=== PATIENT | female | born 1960 | race Caucasian/White ===

== ENCOUNTER 2018-12-10 20:50 | Inpatient (IN) | payer BC, OTHER ==
[~2018-12-10] VITALS: Ht 149.9 cm; Wt 74.6 kg
[2018-12-10] MEDS ORDERED: ONDANSETRON PF 4 MG/2 ML VIAL. IV ONE (21:15)
[2018-12-10] MEDS ORDERED: MORPHINE SULFATE 4 MG/ML VIAL. IV ONE (21:15)
[2018-12-10] MEDS ORDERED: IV NORMAL SALINE 1000ML BAG 1,000 ML IV SCH (21:15)
[2018-12-10] MEDS ORDERED: ASPIRIN CHEWABLE 81 MG TABLET. PO ONE (21:15)
[2018-12-10 21:22] LABS: BASO % 1 % (0-3); EOS # 0.3 x10^3/uL (0.0-0.7); EOS % 3 % (0-3); HEMATOCRIT 38.1 % (36.0-47.0); HEMOGLOBIN 12.9 g/dL (12.0-15.5); LYMPH # 3.4 x10^3/uL (1.0-4.8); LYMPH % 42 % (24-48); MEAN CORPUSCULAR HEMOGLOBIN 30 pg (25-35); MEAN CORPUSCULAR HGB CONC 34 g/dL (31-37); MEAN CORPUSCULAR VOLUME 89 fL (79-100); MONO # 0.7 x10^3/uL (0.0-1.1); MONO % 8 % (0-9); NEUT # 3.7 x10^3uL (1.8-7.7); NEUT % 45 % (31-73); PLATELET COUNT 302 x10^3/uL (140-400); RED BLOOD COUNT 4.29 x10^6/uL (3.50-5.40); RED CELL DISTRIBUTION WIDTH 13.6 % (11.5-14.5); WHITE BLOOD COUNT 8.1 x10^3/uL (4.0-11.0)
[2018-12-10 21:39] LABS: ALBUMIN 3.9 g/dL (3.4-5.0); CALCIUM 8.9 mg/dL (8.5-10.1); CREATININE 0.7 mg/dL (0.6-1.0); GFR 86.2; MAGNESIUM 1.9 mg/dL (1.8-2.4); TOTAL BILIRUBIN 0.3 mg/dL (0.2-1.0); TOTAL PROTEIN 7.8 g/dL (6.4-8.2)
[2018-12-10 21:40] LABS: POTASSIUM 2.9 mmol/L (3.5-5.1)
[2018-12-10] MEDS ORDERED: POTASSIUM CHLORIDE 20 MEQ TABLET.ER. PO ONE (21:45)
--- NOTE | 2018-12-10 21:53 | RAD ---
PORTABLE CHEST 1V Clinical Indication: chest pain started about 1 to 2 hours ago. pain in sternum and down left arm. hypertension. Comparison: None. Findings: The cardiomediastinal silhouette is normal. Lungs are clear. There is no pneumothorax. No pleural effusion is appreciated. No acute bone abnormality. Degenerative endplate spurring of the thoracic spine. IMPRESSION: No acute cardiopulmonary process. Electronically signed by: Gwyn Dunne MD (12/10/2018 9:48 PM) [facility]
--- NOTE | 2018-12-10 22:16 | PHYS DOC ---
Past Medical History Past Medical History: Hypertension Past Surgical History: No Surgical History Alcohol Use: Occasionally Drug Use: None Adult General Chief Complaint Chief Complaint: CHEST PAIN HPI HPI Patient is a 58-year-old female who presents with complaint of substernal chest pain that started approximately 45 minutes prior to arrival radiated into her neck and left shoulder. She states that pain is like a dull pressure and she does indicate that she became nauseated with the pain. She states that at its worst the pain was an 8 out of 10 and currently is about a 6 out of 10. Patient did take 2 baby aspirin at home. She indicates that she has no cardiac history but has a strong family history of cardiac disease. Patient states that symptoms were worsened with minimal exertion. She states that there are no alleviating factors. Review of Systems Review of Systems Constitutional: Denies fever or chills [] Respiratory: Denies cough or shortness of breath [] Cardiovascular: No additional information not addressed in HPI [] GI: Denies abdominal pain. Admits to nausea without vomiting. [] Integument: Denies rash or skin lesions [] Neurologic: Denies headache, focal weakness or sensory changes [] All other systems were reviewed and found to be within normal limits, except as documented in this note. Current Medications Current Medications Current Medications Medications (Trade) Dose Ordered Sig/[facility] Start Time Stop Time Status Last Admin Dose Admin Aspirin (Children'S Aspirin) 162 mg 1X ONCE 12/10/18 21:15 12/10/18 21:16 DC 12/10/18 21:21 162 MG Morphine Sulfate (Morphine Sulfate) 2 mg 1X ONCE 12/10/18 21:15 12/10/18 21:16 DC 12/10/18 21:21 2 MG Ondansetron HCl (Zofran) 4 mg 1X ONCE 12/10/18 21:15 12/10/18 21:16 DC 12/10/18 21:21 4 MG Potassium Chloride (Klor-Con) 40 meq 1X ONCE 12/10/18 21:45 12/10/18 21:46 DC 12/10/18 21:59 40 MEQ Sodium Chloride 1,000 ml @ 1,000 mls/hr Q1H 12/10/18 21:15 12/10/18 22:14 DC 12/10/18 21:22 1,000 MLS/HR Allergies Allergies Allergies Coded Allergies Type Severity Reaction Last Updated Verified No Known Drug Allergies 12/10/18 No Physical Exam Physical Exam Constitutional: Well developed, well nourished, no acute distress, non-toxic appearance. [] HENT: Normocephalic, atraumatic, bilateral external ears normal, oropharynx moist, no oral exudates, nose normal. [] Eyes: PERRLA, EOMI, conjunctiva normal, no discharge. [] Neck: Normal range of motion, no tenderness, supple, no stridor. [] Cardiovascular: Mildly bradycardic rate with regular rhythm [] Lungs & Thorax: Bilateral breath sounds clear to auscultation [] Abdomen: Bowel sounds normal, soft, no tenderness. [] Skin: Warm, dry, no erythema, no rash. [] Extremities: No tenderness, no cyanosis, no clubbing, ROM intact, no edema. [] Neurologic: Alert and oriented X 3, no focal deficits noted. [] Current Patient Data Vital Signs Vital Signs Date Time Temp Pulse Resp B/P (MAP) Pulse Ox O2 Delivery O2 Flow Rate FiO2 12/10/18 21:10 98.3 60 18 213/94 (133) 100 Room Air 98.3 Lab Values Laboratory Tests Test 12/10/18 21:09 White Blood Count 8.1 x10^3/uL (4.0-11.0) Red Blood Count 4.29 x10^6/uL (3.50-5.40) Hemoglobin 12.9 g/dL (12.0-15.5) Hematocrit 38.1 % (36.0-47.0) Mean Corpuscular Volume 89 fL (79-100) Mean Corpuscular Hemoglobin 30 pg (25-35) Mean Corpuscular Hemoglobin Concent 34 g/dL (31-37) Red Cell Distribution Width 13.6 % (11.5-14.5) Platelet Count 302 x10^3/uL (140-400) Neutrophils (%) (Auto) 45 % (31-73) Lymphocytes (%) (Auto) 42 % (24-48) Monocytes (%) (Auto) 8 % (0-9) Eosinophils (%) (Auto) 3 % (0-3) Basophils (%) (Auto) 1 % (0-3) Neutrophils # (Auto) 3.7 x10^3uL (1.8-7.7) Lymphocytes # (Auto) 3.4 x10^3/uL (1.0-4.8) Monocytes # (Auto) 0.7 x10^3/uL (0.0-1.1) Eosinophils # (Auto) 0.3 x10^3/uL (0.0-0.7) Basophils # (Auto) 0.0 x10^3/uL (0.0-0.2) Sodium Level 139 mmol/L (136-145) Potassium Level 2.9 mmol/L (3.5-5.1) *L Chloride Level 102 mmol/L (98-107) Carbon Dioxide Level 28 mmol/L (21-32) Anion Gap 9 (6-14) Blood Urea Nitrogen 21 mg/dL (7-20) H Creatinine 0.7 mg/dL (0.6-1.0) Estimated GFR (Cockcroft-Gault) 86.2 BUN/Creatinine Ratio 30 (6-20) H Glucose Level 122 mg/dL (70-99) H Calcium Level 8.9 mg/dL (8.5-10.1) Magnesium Level 1.9 mg/dL (1.8-2.4) Total Bilirubin 0.3 mg/dL (0.2-1.0) Aspartate Amino Transferase (AST) 21 U/L (15-37) Alanine Aminotransferase (ALT) 31 U/L (14-59) Alkaline Phosphatase 69 U/L (46-116) Troponin I Quantitative < 0.017 ng/mL (0.000-0.055) QO-Son-F-Type Natriuretic Peptide 98 pg/mL (0-124) Total Protein 7.8 g/dL (6.4-8.2) Albumin 3.9 g/dL (3.4-5.0) Albumin/Globulin Ratio 1.0 (1.0-1.7) Lipase 164 U/L (73-393) Laboratory Tests 12/10/18 21:09 Laboratory Tests 12/10/18 21:09 EKG EKG [] Interpretation Time: EKG demonstrates normal sinus rhythm with rate of 53. There are no ST segment or mellitus. Radiology/Procedures Radiology/Procedures [] Impressions: PROCEDURE: PORTABLE CHEST 1V PORTABLE CHEST 1V Clinical Indication: chest pain started about 1 to 2 hours ago. pain in sternum and down left arm. hypertension. Comparison: None. Findings: The cardiomediastinal silhouette is normal. Lungs are clear. There is no pneumothorax. No pleural effusion is appreciated. No acute bone abnormality. Degenerative endplate spurring of the thoracic spine. IMPRESSION: No acute cardiopulmonary process. Electronically signed by: Gwyn Dunne MD (12/10/2018 9:48 PM) [facility] Course & Med Decision Making Course & Med Decision Making Pertinent Labs and Imaging studies reviewed. (See chart for details) [] Dragon Disclaimer Dragon Disclaimer This electronic medical record was generated, in whole or in part, using a voice recognition dictation system. Departure Departure Impression: Primary Impression: Chest pain Disposition: 09 ADMITTED INPATIENT Admitting Physician: Other (Obiozor) Condition: IMPROVED Referrals: PAIGE LOU MD (PCP) Problem Qualifiers Primary Impression: Chest pain Chest pain type: unspecified Qualified Codes: R07.9 - Chest pain, unspecified ALIZE DURAN Jr. DO Dec 10, 2018 22:16
[2018-12-10] MEDS: IV NORMAL SALINE 1000ML BAG 1,000 ML IV SCH (22:30)
[2018-12-10] MEDS ORDERED: ONDANSETRON PF 4 MG/2 ML VIAL. IV PRN (22:30)
[2018-12-10] MEDS ORDERED: MORPHINE SULFATE 4 MG/ML VIAL. IV PRN (22:30)
[2018-12-10 23:00] VITALS: BP 167/78
[2018-12-10] MEDS ORDERED: LOSA1TAB25 PO (23:18)
[2018-12-11 03:30] VITALS: BP 96/59
[2018-12-11 06:09] LABS: CALCIUM 8.5 mg/dL (8.5-10.1); CREATININE 0.7 mg/dL (0.6-1.0); GFR 86.2; POTASSIUM 4.5 mmol/L (3.5-5.1)
[2018-12-11] MEDS: IV NORMAL SALINE 1000ML BAG 1,000 ML IV SCH ×2 (06:30→14:30)
[2018-12-11 07:00] VITALS: BP 104/51
--- NOTE | 2018-12-11 07:29 | EKG ---
[facility] [address] [place] [address] Test Date: 2018-12-10 Test Time: 20:54:09 Pat Name: DAVID EDMONDS Department: Room: 200 1 Gender: F Shipping Hand: : 1960 Requested By: ALIZE DURAN Order Number: [id number] Reading MD: Niko Steel Measurements Intervals [place] Rate: 53 P: 42 WI: 176 QRS: -7 QRSD: 90 T: 17 QT: 436 QTc: 415 Interpretive Statements SINUS RHYTHM LEFTWARD AXIS Electronically Signed On 12-13-2018 9:46:05 [employer] by Niko Steel
[2018-12-11] MEDS: LOSARTAN POTASSIUM 50 MG TABLET. PO SCH (10:52)
[2018-12-11] MEDS: hydroCHLOROthiazide 12.5 MG CAPSULE PO SCH (10:52)
--- NOTE | 2018-12-11 10:53 | PDOC2 ---
CONSULT Date of Consult Date of Consult DATE: 12/11/18 TIME: 10:48 Reason for Consult Reason for Consult: Chest pain Referring Physician Referring Physician: Dr. Stewart Identification/Chief Complaint Chief Complaint Chest pain Source Source: Caregiver, Patient History of Present Illness Reason for Visit: 58-year-old female presented complaining of left-sided chest pressure 7/10 severity radiating to her neck and left shoulder and arm. She stated that she felt like something heavy was sitting on her chest. She denied any orthopnea/PND , palpitations or syncope. She is a smoker and has strong family history of premature coronary artery disease. Past Medical History Cardiovascular: HTN Past Surgical History Past Surgical History: No pertinent history Family History Family History Positive for premature coronary artery disease Social History Social History Patient admitted to smoking less than one pack of cigarettes daily and occasional intake of alcohol. She denied any drug abuse. Current Problem List Problem List Problems Medical Problems: (1) Chest pain Status: Acute Current Medications Current Medications Current Medications Aspirin (Children'S Aspirin) 162 mg 1X ONCE PO Last administered on 12/10/18at 21:21; Start 12/10/18 at 21:15; Stop 12/10/18 at 21:16; Status DC Sodium Chloride 1,000 ml @ 1,000 mls/hr Q1H IV Last administered on 12/10/18at 21:22; Start 12/10/18 at 21:15; Stop 12/10/18 at 22:14; Status DC Morphine Sulfate (Morphine Sulfate) 2 mg 1X ONCE IV Last administered on at 21:21; Start 12/10/18 at 21:15; Stop 12/10/18 at 21:16; Status DC Ondansetron HCl (Zofran) 4 mg 1X ONCE IV Last administered on 12/10/18at 21:21 ; Start 12/10/18 at 21:15; Stop 12/10/18 at 21:16; Status DC Potassium Chloride (Klor-Con) 40 meq 1X ONCE PO Last administered on at 21:59; Start 12/10/18 at 21:45; Stop 12/10/18 at 21:46; Status DC Ondansetron HCl (Zofran) 4 mg PRN Q8HRS PRN IV NAUSEA/VOMITING; Start 12/10/18 at 22:30; Stop 12/11/18 at 22:29 Morphine Sulfate (Morphine Sulfate) 2 mg PRN Q2HR PRN IV PAIN; Start 12/10/18 at 22:30; Stop 12/11/18 at 22:29 Sodium Chloride 1,000 ml @ 125 mls/hr Q8H IV ; Start 12/10/18 at 22:30; Stop at 22:29 Non-Formulary Medication (Losartan/ Hydrochlorothiazide (Losartan-Hctz 100-12.5 Mg Tab)) 1 tab DAILY PO ; Start 12/12/18 at 09:00; Stop 12/12/18 at 09:00; Status DC Losartan Potassium (Cozaar) 100 mg DAILY PO ; Start 12/11/18 at 11:00 Hydrochlorothiazide (Microzide) 12.5 mg DAILY PO ; Start 12/11/18 at 11:00 Active Scripts Active Reported Losartan-Hctz 100-12.5 Mg Tab (Losartan/Hydrochlorothiazide) 1 Each Tablet 1 Tab PO DAILY Allergies Allergies: Coded Allergies: No Known Drug Allergies (Unverified , 12/10/18) ROS PSYCHOLOGICAL ROS: No: Hallucinations Eyes: No Loss of vision HEENT: No: Epistaxis Respiratory: No: Hemoptysis, Shortness of breath Cardiovascular: yes Chest Pain Gastrointestinal: Yes Nausea; No Vomiting, No Diarrhea Genitourinary: No Hematuria Neurological: No Seizures Skin: No Rash Physical Exam General: Alert, Oriented X3 HEENT: Atraumatic, PERRLA Lungs: Clear to auscultation Heart: Regular rate Abdomen: Soft, No tenderness Extremities: No edema Psych/Mental Status: Mood NL Vitals VITALS Vital Signs Date Time Temp Pulse Resp B/P (MAP) Pulse Ox O2 Delivery O2 Flow Rate FiO2 12/11/18 07:48 Room Air 12/11/18 07:00 98.1 65 18 104/51 (68) 98 98.1 Labs Labs Laboratory Tests Test 12/10/18 21:09 12/11/18 01:10 12/11/18 04:30 White Blood Count 8.1 x10^3/uL (4.0-11.0) Red Blood Count 4.29 x10^6/uL (3.50-5.40) Hemoglobin 12.9 g/dL (12.0-15.5) Hematocrit 38.1 % (36.0-47.0) Mean Corpuscular Volume 89 fL (79-100) Mean Corpuscular Hemoglobin 30 pg (25-35) Mean Corpuscular Hemoglobin Concent 34 g/dL (31-37) Red Cell Distribution Width 13.6 % (11.5-14.5) Platelet Count 302 x10^3/uL (140-400) Neutrophils (%) (Auto) 45 % (31-73) Lymphocytes (%) (Auto) 42 % (24-48) Monocytes (%) (Auto) 8 % (0-9) Eosinophils (%) (Auto) 3 % (0-3) Basophils (%) (Auto) 1 % (0-3) Neutrophils # (Auto) 3.7 x10^3uL (1.8-7.7) Lymphocytes # (Auto) 3.4 x10^3/uL (1.0-4.8) Monocytes # (Auto) 0.7 x10^3/uL (0.0-1.1) Eosinophils # (Auto) 0.3 x10^3/uL (0.0-0.7) Basophils # (Auto) 0.0 x10^3/uL (0.0-0.2) Sodium Level 139 mmol/L (136-145) 144 mmol/L (136-145) Potassium Level 2.9 mmol/L (3.5-5.1) 4.5 mmol/L (3.5-5.1) Chloride Level 102 mmol/L (98-107) 110 mmol/L (98-107) Carbon Dioxide Level 28 mmol/L (21-32) 27 mmol/L (21-32) Anion Gap 9 (6-14) 7 (6-14) Blood Urea Nitrogen 21 mg/dL (7-20) 19 mg/dL (7-20) Creatinine 0.7 mg/dL (0.6-1.0) 0.7 mg/dL (0.6-1.0) Estimated GFR (Cockcroft-Gault) 86.2 86.2 BUN/Creatinine Ratio 30 (6-20) Glucose Level 122 mg/dL (70-99) 84 mg/dL (70-99) Calcium Level 8.9 mg/dL (8.5-10.1) 8.5 mg/dL (8.5-10.1) Magnesium Level 1.9 mg/dL (1.8-2.4) Total Bilirubin 0.3 mg/dL (0.2-1.0) Aspartate Amino Transf (AST/SGOT) 21 U/L (15-37) Alanine Aminotransferase (ALT/SGPT) 31 U/L (14-59) Alkaline Phosphatase 69 U/L (46-116) Troponin I Quantitative < 0.017 ng/mL (0.000-0.055) < 0.017 ng/mL (0.000-0.055) < 0.017 ng/mL (0.000-0.055) BN-Oxi-W-Type Natriuretic Peptide 98 pg/mL (0-124) Total Protein 7.8 g/dL (6.4-8.2) Albumin 3.9 g/dL (3.4-5.0) Albumin/Globulin Ratio 1.0 (1.0-1.7) Lipase 164 U/L (73-393) Laboratory Tests Test 12/10/18 21:09 12/11/18 01:10 12/11/18 04:30 White Blood Count 8.1 x10^3/uL (4.0-11.0) Red Blood Count 4.29 x10^6/uL (3.50-5.40) Hemoglobin 12.9 g/dL (12.0-15.5) Hematocrit 38.1 % (36.0-47.0) Mean Corpuscular Volume 89 fL (79-100) Mean Corpuscular Hemoglobin 30 pg (25-35) Mean Corpuscular Hemoglobin Concent 34 g/dL (31-37) Red Cell Distribution Width 13.6 % (11.5-14.5) Platelet Count 302 x10^3/uL (140-400) Neutrophils (%) (Auto) 45 % (31-73) Lymphocytes (%) (Auto) 42 % (24-48) Monocytes (%) (Auto) 8 % (0-9) Eosinophils (%) (Auto) 3 % (0-3) Basophils (%) (Auto) 1 % (0-3) Neutrophils # (Auto) 3.7 x10^3uL (1.8-7.7) Lymphocytes # (Auto) 3.4 x10^3/uL (1.0-4.8) Monocytes # (Auto) 0.7 x10^3/uL (0.0-1.1) Eosinophils # (Auto) 0.3 x10^3/uL (0.0-0.7) Basophils # (Auto) 0.0 x10^3/uL (0.0-0.2) Sodium Level 139 mmol/L (136-145) 144 mmol/L (136-145) Potassium Level 2.9 mmol/L (3.5-5.1) 4.5 mmol/L (3.5-5.1) Chloride Level 102 mmol/L (98-107) 110 mmol/L (98-107) Carbon Dioxide Level 28 mmol/L (21-32) 27 mmol/L (21-32) Anion Gap 9 (6-14) 7 (6-14) Blood Urea Nitrogen 21 mg/dL (7-20) 19 mg/dL (7-20) Creatinine 0.7 mg/dL (0.6-1.0) 0.7 mg/dL (0.6-1.0) Estimated GFR (Cockcroft-Gault) 86.2 86.2 BUN/Creatinine Ratio 30 (6-20) Glucose Level 122 mg/dL (70-99) 84 mg/dL (70-99) Calcium Level 8.9 mg/dL (8.5-10.1) 8.5 mg/dL (8.5-10.1) Magnesium Level 1.9 mg/dL (1.8-2.4) Total Bilirubin 0.3 mg/dL (0.2-1.0) Aspartate Amino Transf (AST/SGOT) 21 U/L (15-37) Alanine Aminotransferase (ALT/SGPT) 31 U/L (14-59) Alkaline Phosphatase 69 U/L (46-116) Troponin I Quantitative < 0.017 ng/mL (0.000-0.055) < 0.017 ng/mL (0.000-0.055) < 0.017 ng/mL (0.000-0.055) GA-Qrr-F-Type Natriuretic Peptide 98 pg/mL (0-124) Total Protein 7.8 g/dL (6.4-8.2) Albumin 3.9 g/dL (3.4-5.0) Albumin/Globulin Ratio 1.0 (1.0-1.7) Lipase 164 U/L (73-393) Assessment/Plan Assessment/Plan 1. Chest pain with typical features concerning for unstable angina. Myocardial infarction has been ruled out. We will proceed with cardiac catheterization for definitive evaluation. Risks and benefits were explained and she is agreeable. 2. Hypertension: Controlled Thank you for your consultation. WILLOW HOYT MD Dec 11, 2018 10:53
[2018-12-11 10:58] VITALS: BP 107/62
[2018-12-11] MEDS: ASPIRIN ENTERIC COATED 325 MG TABLET.DR. PO SCH (12:30)
[2018-12-11 15:00] VITALS: BP 114/69
--- NOTE | 2018-12-11 15:31 | PDOC1 ---
History and Physical History of Present Illness History of Present Illness Per ED Patient is a 58-year-old female who presents with complaint of substernal chest pain that started approximately 45 minutes prior to arrival radiated into her neck and left shoulder. She states that pain is like a dull pressure and she does indicate that she became nauseated with the pain. She states that at its worst the pain was an 8 out of 10 and currently is about a 6 out of 10. Patient did take 2 baby aspirin at home. She indicates that she has no cardiac history but has a strong family history of cardiac disease. Patient states that symptoms were worsened with minimal exertion. She states that there are no alleviating factors. On my exam the pt isin bed in NAD. She states that she has never had CP before and this presentation is new. She thinks she got too excited watching the [employer] game last night She c/o headache but has a h/o headaches - improved with ASA She has been seen by cards. Plan for cath in the am Past Medical History Cardiovascular: HTN Past Surgical History Past Surgical History: No pertinent history Current Problem List Problem List Problems Medical Problems: (1) Chest pain Status: Acute Current Medications Current Medications Current Medications Medications (Trade) Dose Ordered Sig/Jet Start Time Stop Time Status Last Admin Dose Admin Aspirin (Children'S Aspirin) 162 mg 1X ONCE 12/10/18 21:15 12/10/18 21:16 DC 12/10/18 21:21 162 MG Aspirin (Ecotrin) 325 mg [id number] 12/11/18 12:00 12/11/18 12:30 325 MG Hydrochlorothiazide (Microzide) 12.5 mg DAILY 12/11/18 11:00 12/11/18 10:52 12.5 MG Losartan Potassium (Cozaar) 100 mg DAILY 12/11/18 11:00 12/11/18 10:52 100 MG Morphine Sulfate (Morphine Sulfate) 2 mg PRN Q2HR PRN 12/10/18 22:30 12/11/18 22:29 Non-Formulary Medication (Losartan/ Hydrochlorothiazide (Losartan-Hctz 100-12.5 Mg Tab)) 1 tab DAILY 12/12/18 09:00 12/12/18 09:00 DC Ondansetron HCl (Zofran) 4 mg PRN Q8HRS PRN 12/10/18 22:30 12/11/18 22:29 Potassium Chloride (Klor-Con) 40 meq 1X ONCE 12/10/18 21:45 12/10/18 21:46 DC 12/10/18 21:59 40 MEQ Sodium Chloride 1,000 ml @ 125 mls/hr Q8H 12/10/18 22:30 12/11/18 22:29 Allergies Allergies Allergies Coded Allergies Type Severity Reaction Last Updated Verified No Known Drug Allergies 12/10/18 No ROS Review of System CONSTITUTIONAL: No fever or chills EYES: No recent changes SKIN: No rash or itching CARDIOVASCULAR: No chest pain, syncope, palpitations, or edema RESPIRATORY: No SOB or cough GASTROINTESTINAL: No nausea, vomiting or abdominal pain NEUROLOGICAL: No headaches or weakness ENDOCRINE: No cold or heat intolerance GENITOURINARY: No urgency or frequency of urination MUSCULOSKELETAL: No back pain or joint pain LYMPHATICS: No enlarged lymph nodes PSYCHIATRIC: No anxiety or depression Physical Exam Physical Exam GEN.: No apparent distress. Alert and oriented. HEENT: Head is normocephalic, atraumatic NECK: Supple. LUNGS: Clear to auscultation. HEART: RRR, S1, S2 present. Peripheral pulses intact ABDOMEN: Soft, nontender. Positive bowel sounds. EXTREMITIES: Without any cyanosis. NEUROLOGIC: Normal speech, normal tone PSYCHIATRIC: Normal affect, normal mood. SKIN: No ulcerations Vitals Vitals Vital Signs Date Time Temp Pulse Resp B/P (MAP) Pulse Ox O2 Delivery O2 Flow Rate FiO2 12/11/18 10:58 97.8 66 18 107/62 (77) 97 Room Air 97.8 Labs Labs Laboratory Tests Test 12/10/18 21:09 12/11/18 01:10 12/11/18 04:30 White Blood Count 8.1 x10^3/uL (4.0-11.0) Red Blood Count 4.29 x10^6/uL (3.50-5.40) Hemoglobin 12.9 g/dL (12.0-15.5) Hematocrit 38.1 % (36.0-47.0) Mean Corpuscular Volume 89 fL (79-100) Mean Corpuscular Hemoglobin 30 pg (25-35) Mean Corpuscular Hemoglobin Concent 34 g/dL (31-37) Red Cell Distribution Width 13.6 % (11.5-14.5) Platelet Count 302 x10^3/uL (140-400) Neutrophils (%) (Auto) 45 % (31-73) Lymphocytes (%) (Auto) 42 % (24-48) Monocytes (%) (Auto) 8 % (0-9) Eosinophils (%) (Auto) 3 % (0-3) Basophils (%) (Auto) 1 % (0-3) Neutrophils # (Auto) 3.7 x10^3uL (1.8-7.7) Lymphocytes # (Auto) 3.4 x10^3/uL (1.0-4.8) Monocytes # (Auto) 0.7 x10^3/uL (0.0-1.1) Eosinophils # (Auto) 0.3 x10^3/uL (0.0-0.7) Basophils # (Auto) 0.0 x10^3/uL (0.0-0.2) Sodium Level 139 mmol/L (136-145) 144 mmol/L (136-145) Potassium Level 2.9 mmol/L (3.5-5.1) 4.5 mmol/L (3.5-5.1) Chloride Level 102 mmol/L (98-107) 110 mmol/L (98-107) Carbon Dioxide Level 28 mmol/L (21-32) 27 mmol/L (21-32) Anion Gap 9 (6-14) 7 (6-14) Blood Urea Nitrogen 21 mg/dL (7-20) 19 mg/dL (7-20) Creatinine 0.7 mg/dL (0.6-1.0) 0.7 mg/dL (0.6-1.0) Estimated GFR (Cockcroft-Gault) 86.2 86.2 BUN/Creatinine Ratio 30 (6-20) Glucose Level 122 mg/dL (70-99) 84 mg/dL (70-99) Calcium Level 8.9 mg/dL (8.5-10.1) 8.5 mg/dL (8.5-10.1) Magnesium Level 1.9 mg/dL (1.8-2.4) Total Bilirubin 0.3 mg/dL (0.2-1.0) Aspartate Amino Transf (AST/SGOT) 21 U/L (15-37) Alanine Aminotransferase (ALT/SGPT) 31 U/L (14-59) Alkaline Phosphatase 69 U/L (46-116) Troponin I Quantitative < 0.017 ng/mL (0.000-0.055) < 0.017 ng/mL (0.000-0.055) < 0.017 ng/mL (0.000-0.055) MQ-Jlx-V-Type Natriuretic Peptide 98 pg/mL (0-124) Total Protein 7.8 g/dL (6.4-8.2) Albumin 3.9 g/dL (3.4-5.0) Albumin/Globulin Ratio 1.0 (1.0-1.7) Lipase 164 U/L (73-393) Laboratory Tests Test 12/10/18 21:09 12/11/18 01:10 12/11/18 04:30 White Blood Count 8.1 x10^3/uL (4.0-11.0) Red Blood Count 4.29 x10^6/uL (3.50-5.40) Hemoglobin 12.9 g/dL (12.0-15.5) Hematocrit 38.1 % (36.0-47.0) Mean Corpuscular Volume 89 fL (79-100) Mean Corpuscular Hemoglobin 30 pg (25-35) Mean Corpuscular Hemoglobin Concent 34 g/dL (31-37) Red Cell Distribution Width 13.6 % (11.5-14.5) Platelet Count 302 x10^3/uL (140-400) Neutrophils (%) (Auto) 45 % (31-73) Lymphocytes (%) (Auto) 42 % (24-48) Monocytes (%) (Auto) 8 % (0-9) Eosinophils (%) (Auto) 3 % (0-3) Basophils (%) (Auto) 1 % (0-3) Neutrophils # (Auto) 3.7 x10^3uL (1.8-7.7) Lymphocytes # (Auto) 3.4 x10^3/uL (1.0-4.8) Monocytes # (Auto) 0.7 x10^3/uL (0.0-1.1) Eosinophils # (Auto) 0.3 x10^3/uL (0.0-0.7) Basophils # (Auto) 0.0 x10^3/uL (0.0-0.2) Sodium Level 139 mmol/L (136-145) 144 mmol/L (136-145) Potassium Level 2.9 mmol/L (3.5-5.1) 4.5 mmol/L (3.5-5.1) Chloride Level 102 mmol/L (98-107) 110 mmol/L (98-107) Carbon Dioxide Level 28 mmol/L (21-32) 27 mmol/L (21-32) Anion Gap 9 (6-14) 7 (6-14) Blood Urea Nitrogen 21 mg/dL (7-20) 19 mg/dL (7-20) Creatinine 0.7 mg/dL (0.6-1.0) 0.7 mg/dL (0.6-1.0) Estimated GFR (Cockcroft-Gault) 86.2 86.2 BUN/Creatinine Ratio 30 (6-20) Glucose Level 122 mg/dL (70-99) 84 mg/dL (70-99) Calcium Level 8.9 mg/dL (8.5-10.1) 8.5 mg/dL (8.5-10.1) Magnesium Level 1.9 mg/dL (1.8-2.4) Total Bilirubin 0.3 mg/dL (0.2-1.0) Aspartate Amino Transf (AST/SGOT) 21 U/L (15-37) Alanine Aminotransferase (ALT/SGPT) 31 U/L (14-59) Alkaline Phosphatase 69 U/L (46-116) Troponin I Quantitative < 0.017 ng/mL (0.000-0.055) < 0.017 ng/mL (0.000-0.055) < 0.017 ng/mL (0.000-0.055) QG-Vuo-K-Type Natriuretic Peptide 98 pg/mL (0-124) Total Protein 7.8 g/dL (6.4-8.2) Albumin 3.9 g/dL (3.4-5.0) Albumin/Globulin Ratio 1.0 (1.0-1.7) Lipase 164 U/L (73-393) VTE Prophylaxis Ordered VTE Prophylaxis Devices: No VTE Pharmacological Prophylaxi: No Assessment/Plan Assessment/Plan Plan: Kasia cards eval Cycle trops Cath in FAITH REEDER MD Dec 11, 2018 15:31
[2018-12-11 19:35] VITALS: BP 128/72
[2018-12-11 23:00] VITALS: BP 106/53
[2018-12-12] VITALS (13 sets, daily range): BP systolic 80–125; BP diastolic 53–77
[2018-12-12] MEDS: ASPIRIN ENTERIC COATED 325 MG TABLET.DR. PO SCH (08:01)
[2018-12-12] MEDS: LOSARTAN POTASSIUM 50 MG TABLET. PO SCH (08:01)
[2018-12-12] MEDS: hydroCHLOROthiazide 12.5 MG CAPSULE PO SCH (09:00)
[2018-12-12] MEDS ORDERED: NON FORMULARY ITEM (Losartan/Hydrochlorothiazide (Losartan-Hctz 100-12.5 Mg Tab) 1 TAB) PO SCH (09:00)
[2018-12-12] MEDS ORDERED: LIDOCAINE 1% PF 2 ML VIAL. ONE ×2 (09:31→09:55)
[2018-12-12] MEDS ORDERED: IODIXANOL 320 MG/ML 100 ML VIAL. ONE (09:31)
--- NOTE | 2018-12-12 09:41 | CARD ---
MR#: [id number] Date of Study: 12/12/2018 Ordering Physician: WILLOW HOYT, Referring Physician: FAITH REEDRE Tech: Niya Whitt [facility] APPROVED REPORT EXAM: Two-dimensional and M-mode echocardiogram with Doppler and color Doppler. Other Information Quality : Good INDICATION Chest Pain 2D DIMENSIONS RVDd2.1 (2.9-3.5cm)Left Atrium(2D)3.0 (1.6-4.0cm) IVSd0.8 (0.7-1.1cm)Aortic Root(2D)2.8 (2.0-3.7cm) LVDd4.0 (3.9-5.9cm)LVOT Diameter2.0 (1.8-2.4cm) PWd0.8 (0.7-1.1cm)LVDs2.3 (2.5-4.0cm) FS (%) 30.0 %SV53.0 ml LVEF(%)60.0 (>50%) Aortic Valve AoV Peak Tramaine.87.1cm/sAoV VTI17.5cm AO Peak GR.3.0mmHgLVOT Peak Tramaine.91.6cm/s AO Mean GR.2mmHgAVA (VMAX)3.24cm2 JULIEN (VTI)3.30cm2 Mitral Valve MV E Olweilyz45.7cm/sMV DECEL [id number] MV A Lofardmm83.8cm/sE/A Ratio1.2 Tricuspid Valve TR P. Iarbyzie902as/sRAP HHGUWDIW5hqTd TR Peak Gr.49anUcEMYS83ogOs Pulmonary Vein S1 Kwulvbvh43.6cm/sD2 Fvhybpkt39.5cm/s LEFT VENTRICLE The left ventricle is normal size. There is normal left ventricular wall thickness. The left ventricu lar systolic function is normal. The Ejection Fraction is 55-60%. There is normal LV segmental wall m otion. RIGHT VENTRICLE The right ventricle is normal size. The right ventricular systolic function is normal. ATRIA The left atrium size is normal. The right atrium size is normal. The interatrial septum is intact wit h no evidence for an atrial septal defect or patent foramen ovale as noted on 2-D or Doppler imaging. AORTIC VALVE The aortic valve is calcified but opens well. Doppler and Color Flow revealed no significant aortic r egurgitation. There is no significant aortic valvular stenosis. MITRAL VALVE The mitral valve is calcified but opens well. There is no evidence of mitral valve prolapse. There is no mitral valve stenosis. Doppler and Color-flow revealed trace to mild mitral regurgitation. TRICUSPID VALVE The tricuspid valve is normal in structure and function. Doppler and Color Flow revealed mild tricusp id regurgitation. The PA pressure was estimated at 20 mmHg. There is no tricuspid valve stenosis. PULMONIC VALVE The pulmonic valve is not well visualized. Doppler and Color Flow revealed no pulmonic valvular regur gitation. There is no pulmonic valvular stenosis. GREAT VESSELS The aortic root is normal in size. The ascending aorta is normal in size. The IVC is normal in size a nd collapses >50% with inspiration. PERICARDIAL EFFUSION There is no evidence of significant pericardial effusion. Critical Notification Critical Value: No <Conclusion> The left ventricular systolic function is normal. The Ejection Fraction is 55-60%. There is normal LV segmental wall motion. Trace to mild mitral regurgitation. Mild tricuspid regurgitation. The PA pressure was estimated at 20 mmHg. There is no evidence of significant pericardial effusion. Signed by : Willow Hoyt, Electronically Approved : 12/12/2018 09:39:52
[2018-12-12] MEDS ORDERED: NITROGLYCERIN 200 MCG/2 ML SYRINGE FOR CATH/VASC LAB. ONE (09:50)
[2018-12-12] MEDS ORDERED: MIDAZOLAM HCL/PF 5 MG/5 ML VIAL. ONE (09:50)
[2018-12-12] MEDS ORDERED: VERAPAMIL 5 MG/2 ML VIAL. ONE (09:50)
[2018-12-12] MEDS ORDERED: fentaNYL PF VIAL 100 MCG/2 ML VIAL ONE (09:50)
[2018-12-12] MEDS ORDERED: HEPARIN for IV BOLUS 10,000 UNIT/10 ML VIAL. ONE (09:50)
[2018-12-12] MEDS ORDERED: fentaNYL PF VIAL 100 MCG/2 ML VIAL IV ONE (10:15)
[2018-12-12] MEDS ORDERED: HEPARIN for IV BOLUS 10,000 UNIT/10 ML VIAL. IART ONE (10:15)
[2018-12-12] MEDS ORDERED: LIDOCAINE 1% PF 2 ML VIAL. INJ ONE (10:15)
[2018-12-12] MEDS ORDERED: IODIXANOL 320 MG/ML 100 ML VIAL. IART ONE (10:15)
[2018-12-12] MEDS ORDERED: NITROGLYCERIN 200 MCG/2 ML SYRINGE FOR CATH/VASC LAB. IART ONE (10:15)
[2018-12-12] MEDS ORDERED: VERAPAMIL 5 MG/2 ML VIAL. IART ONE (10:15)
[2018-12-12] MEDS: MIDAZOLAM HCL/PF 5 MG/5 ML VIAL. IV ONE ×2 (10:27→10:30)
[2018-12-12] MEDS ORDERED: IV 1/2 NORMAL SALINE 1,000 ML IV SCH (10:29)
--- NOTE | 2018-12-12 10:29 | PDOC ---
MODERATE SEDATION ASSESSMENT RISKS/ALTERNATIVES Risks/Alternatives Risks and alternatives of this type of sedation and procedure discussed with: RISK/ALTERNATIVES: Patient H & P ON CHART H & P H & P on chart and reviewed for co-morbid conditions and appropriate labs. H&P ON CHART: Yes STATUS PREG STATUS ASSESSED: N/A MEDS/ALLERGIES REVIEWED Meds/Allergies Reviewed Medications and Allergies including time and route of recently administered narcotics and sedatives. MEDS/ALLERGIES REVIEWED: Yes ASA RATING ASA RATING: II AIRWAY ASSESSMENT Airway Assessment Airway patency, oral function limitations, presence of caps, crowns, dentures, partials, and ability to extend neck assessed. AIRWAY ASSESSMENT: Yes MALLAMPATI SCORE MALLAMPATI SCORE: II PRE-SEDATION ASSESSMENT PRE-SEDATION ASSESSMENT: Yes WILLOW HOYT MD Dec 12, 2018 10:29
[2018-12-12] MEDS ORDERED: CONTRAST GIVEN. MC PRN (10:30)
[2018-12-12] MEDS ORDERED: NITROGLYCERIN SUBLINGUAL 0.4 MG BOTTLE OF 25. SL PRN (10:30)
--- NOTE | 2018-12-12 11:21 | NUR ---
SS following for discharge planning. SS reviewed pt chart and met with pt's RN. Pt is from home with spouse and is currently on room air. Pt getting cardiac cath today. No discharge needs noted at this time. SS will continue to follow for pending discharge needs.
--- NOTE | 2018-12-12 12:32 | CARD ---
MR#: [id number] Date of Study: 12/12/2018 Ordering Physician: WILLOW STELE, Referring Physician: FAITH REEDER Tech: Gabriela Schultz RTR APPROVED REPORT Technologist: Gabriela Schultz RTR Nurse: Saige Beltran R.N. Procedure(s) performed: Left heart catheterization, selective coronary angiography and left ventricul ography via right transradial approach Moderate Sedation time: 25 minutes INDICATION The indication(s) include : unstable angina . PROCEDURE NARRATIVE After explaining the risks, benefits and alternative options, informed consent was obtained from carly ent. Patient was brought to the cardiac Occupational Therapy Manager and right wrist was prepped and draped in the usual fashion after confirming a positive modified Ac's test. Arterial access was obtained in the righ t radial artery and a 6 [place]z sheath was inserted. 6 [place] Mark catheter was used to perform ryan ective angiography of the left and right coronary arteries. 6 [place] pigtail catheter was used to pe rform left ventriculography. Patient tolerated the procedure well. Hemostasis was achieved using TR band. There were no immediate complications. The following findings were noted. FINDINGS 1. Hemodynamics: Left ventricular end-diastolic pressure of 12 mmHg. No pullback gradient across th e aortic valve. 2. Left ventriculography: Normal left ventricle systolic function with ejection fraction estimated at 65-70%. No significant mitral regurgitation seen. 3. Coronary angiography: a. The left main coronary artery arose from the left sinus of Valsalva, gave rise to the left anteri or descending and left circumflex arteries and did not show any significant stenosis. b. The left anterior descending artery did not show any significant stenosis. c. The left circumflex artery showed 30% stenosis involving the mid to distal segment. d. The right coronary artery was a large and dominant vessel arising from the right sinus of Valsalv a that showed 30% stenosis involving the proximal segment. Conclusion 1. Nonobstructive coronary artery disease 2. Normal left ventricle systolic function with ejection fraction estimated at 65-70%. Recommendations Cardiac Risk Reduction Program Signed by : Willow Steel, Electronically Approved : 12/12/2018 12:30:05
--- NOTE | 2018-12-12 13:26 | PDOC3 ---
Discharge Summary [facility] Date of Admission: Dec 10, 2018 Discharge Date: Dec 12, 2018 Admitting Diagnosis chest pain, atypical. could 2/2 HTN htn Final Diagnosis Problems Medical Problems: (1) Chest pain Status: Acute CONSULTS CARD Brief Hospital Course Ms. Cheney is a 58 old f, htn, Came for chest pain. in ER BP > 200 systolic. trop neg. Echo ok. CAth today neg. ok to dc as per card. no chest pain. dc time 35min. GEN.: No apparent distress. Alert and oriented. HEENT: Head is normocephalic, atraumatic NECK: Supple. LUNGS: Clear to auscultation. HEART: RRR, S1, S2 present. Peripheral pulses intact ABDOMEN: Soft, nontender. Positive bowel sounds. EXTREMITIES: Without any cyanosis. NEUROLOGIC: Normal speech, normal tone PSYCHIATRIC: Normal affect, normal mood. SKIN: No ulcerations Patient History: FH: aneurysm FH: diabetes mellitus G8 BROTHER FH: myocardial infarction Disposition home CONDITION AT DISCHARGE: Improved Scheduled Losartan/Hydrochlorothiazide (Losartan-Hctz 100-12.5 Mg Tab), 1 TAB PO DAILY, ( Reported) STUART TURNER MD Dec 12, 2018 13:26
[2018-12-12] MEDS ORDERED: ACETAMINOPHEN 325 MG TABLET. PO PRN (13:45)
== END 2018-12-12 18:34 | disposition home or self-care (01) | DRG 287 ==
LOC: ER 20:50 → 2 NORTH 22:21 → OBSVTOIN 22:38
PROVIDERS: ADMIT Hospitalist; ATTEND Hospitalist
PROC: 4A023N7 Measurement of Cardiac Sampling and Pressure, Left Heart, Percutaneous Approach (ICD-10-PCS; principal; 2018-12-10)
PROC: B2151ZZ Fluoroscopy of Left Heart using Low Osmolar Contrast (ICD-10-PCS; 2018-12-10)
PROC: B2111ZZ Fluoroscopy of Multiple Coronary Arteries using Low Osmolar Contrast (ICD-10-PCS; 2018-12-10)
DX: I25.10 Atherosclerotic heart disease of native coronary artery without angina pectoris (principal); R07.2 Precordial pain; F17.210 Nicotine dependence, cigarettes, uncomplicated; I10 Essential (primary) hypertension; Z82.49 Family history of ischemic heart disease and other diseases of the circulatory system; Z83.3 Family history of diabetes mellitus
CPT/HCPCS: 36415; 71045; 80048; 80053; 83690; 83735; 83880; 84484; 85025; 93005; 93306; 93458; 96374; 96375; 99152; 99153; C1769; C1892; G0379; J1644; J2250; J2270; J2405; J3010; J3490; J7030; Q9967; 99285-25; G0378

== ENCOUNTER → 2020-01-08 | Outpatient (CLI) | payer BC ==
[2018-12-12 15:15] VITALS: BP 109/63
[~2020-01-08] MED LIST: LOSA1TAB25 PO
--- NOTE | 2020-01-08 09:37 | CARD ---
MR#: [id number] Date of Study: 01/08/2020 Ordering Physician: WILLOW STEEL, Referring Physician: WILLOW STEEL, Tech: Khushboo Sultana APPROVED REPORT EXAM: Two-dimensional and M-mode echocardiogram with Doppler and color Doppler. Other Information Quality : AverageHR: 52bpm INDICATION Cardiac Disease: CAD RISK FACTORS Hypertension Hyperlipidemia Diabetes 2D DIMENSIONS RVDd2.8 (2.9-3.5cm)Left Atrium(2D)3.0 (1.6-4.0cm) IVSd1.0 (0.7-1.1cm)Aortic Root(2D)3.1 (2.0-3.7cm) LVDd3.9 (3.9-5.9cm)LVOT Diameter2.1 (1.8-2.4cm) PWd1.0 (0.7-1.1cm)LVDs2.4 (2.5-4.0cm) FS (%) 36.8 %SV43.4 ml LVEF(%)67.4 (>50%) Aortic Valve AoV Peak Tramaine.107.6cm/sAoV VTI22.0cm AO Peak GR.4.6mmHgLVOT Peak Tramaine.82.9cm/s LVOT VTI 16.24cmAO Mean GR.2mmHg JULIEN (VMAX)2.73ek9JXE (VTI)2.46cm2 Mitral Valve MV E Wntflpnn04.2cm/sMV DECEL [id number] MV A Xlzjxytw61.7cm/sMV E Mean Gr.1mmHg MV BKU76mhI/A Ratio1.0 MVA (PHT)2.62cm2 TDI E/Lateral E'5.6E/Medial E'7.9 Pulmonary Valve PV Peak Zucxwyig29.9cm/sPV Peak Grad.1mmHg Tricuspid Valve TR P. Ewocdvon941eu/sRAP SIEJVKGH1tbIw TR Peak Gr.74zkWaPMAV66buKz Pulmonary Vein S1 Boxdcrxv63.5cm/sD2 Vzphrqpi13.6cm/s PVa suiehkqi758sppu LEFT VENTRICLE The left ventricle is normal size. There is normal left ventricular wall thickness. The left ventricu lar systolic function is normal. The Ejection Fraction is 55-60%. There is normal LV segmental wall m otion. The left ventricular diastolic function and filling is normal for age. RIGHT VENTRICLE The right ventricle is normal size. There is normal right ventricular wall thickness. The right ventr icular systolic function is normal. ATRIA The left atrium size is normal. The right atrium size is normal. The interatrial septum is intact wit h no evidence for an atrial septal defect or patent foramen ovale as noted on 2-D or Doppler imaging. AORTIC VALVE The aortic valve is normal in structure and function. Doppler and Color Flow revealed no significant aortic regurgitation. There is no significant aortic valvular stenosis. MITRAL VALVE The mitral valve is normal in structure and function. There is no evidence of mitral valve prolapse. There is no mitral valve stenosis. Doppler and Color-flow revealed trace mitral regurgitation. TRICUSPID VALVE The tricuspid valve is normal in structure and function. Doppler and Color Flow revealed trace tricus pid regurgitation with an estimated PAP of 21 mmHg. There is no tricuspid valve stenosis. PULMONIC VALVE The pulmonic valve is not well visualized. Doppler and Color Flow revealed no pulmonic valvular regur gitation. GREAT VESSELS The aortic root is normal in size. The ascending aorta is normal in size. The IVC is normal in size a nd collapses >50% with inspiration. PERICARDIAL EFFUSION There is no evidence of significant pericardial effusion. Critical Notification Critical Value: No <Conclusion> The left ventricular systolic function is normal. The Ejection Fraction is 55-60%. There is normal LV segmental wall motion. Trace mitral regurgitation. Trace tricuspid regurgitation with an estimated PAP of 21 mmHg. There is no evidence of significant pericardial effusion. Signed by : Willow Steel, Electronically Approved : 01/08/2020 09:36:38
== END | disposition home or self-care (01) ==
LOC: ECHO 07:56
PROVIDERS: ATTEND Internal Medicine Cardiovascular Disease
DX: I25.10 Atherosclerotic heart disease of native coronary artery without angina pectoris (principal)
CPT/HCPCS: 93306